=== PATIENT | male | born 1990 | race Caucasian/White ===

== ENCOUNTER 2018-10-19 06:36 | Day surgery (SDC) | payer OTHER ==
[2018-10-18 17:04] VITALS: BMI 27.4
[~2018-10-19] VITALS: Ht 193 cm; Wt 103.8 kg
[2018-10-19] VITALS (10 sets, daily range): BP systolic 115–141; BP diastolic 72–81; PULSE 52–67; RESP 14–39; Ht 193 cm; Wt 103.8 kg
[~2018-10-19 06:36] MED LIST: CEFAZOLIN 2 GM/50 ML (PMX) 50 ML IVPB ONE; SOD CHLORIDE 0.9% 1,000 ML IV SCH
[2018-10-19] MEDS ORDERED: LORA10TA3 PO (07:54)
[2018-10-19] MEDS ORDERED: MONT10TA24 PO (07:54)
[2018-10-19] MEDS ORDERED: FLOV44 INHALATION (07:55)
[2018-10-19] MEDS ORDERED: PSEU60TA2 PO (07:55)
--- NOTE | 2018-10-19 08:55 | PREAC ---
Date/Time of Note Date/Time of Note DATE: 10/19/18 TIME: 08:54 Anesthesia Eval and Record Evaluation Time Pre-Procedure Interview DATE: 10/19/18 TIME: 08:54 Age 28 Sex male NPO: 8 hrs Preoperative diagnosis RIGHT KNEE MASS Planned procedure EXCISION RIGHT KNEE MASS Past Medical History Past Medical History: Includes Pulm: Asthma Surgery & Anesthesia Issues No known issue Meds Anticoagulation: No Beta Irasema within 24 hr: No Reason Beta Irasema not given: Pt. not on B-Irasema Reported Medications Fluticasone Propionate* (Flovent* HFA 44) 10.6 Gm Inha, 1 PUFF INHALATION BID, #1 INHALER 10/19/18 Pseudoephedrine Hcl* (Pseudoephedrine Hcl*) 60 Mg Tablet, 60 MG PO Q6 PRN for CONGESTION, TAB 10/19/18 Montelukast Sodium* (Montelukast Sodium*) 10 Mg Tablet, 10 MG PO QHS, #30 TAB 10/19/18 Loratadine* (Loratadine*) 10 Mg Tablet, 10 MG PO DAILY, #30 TAB 10/19/18 Current Medications Sodium Chloride 1,000 ml @ 75 mls/hr [id number] IV Last administered on 10/19/18at 07:32; Admin Dose 75 MLS/HR; Start 10/19/18 at 06:00; Stop 10/19/18 at 18:00 Meds reviewed: Yes Allergies Coded Allergies: No Known Allergy (Unverified , 10/19/18) Allergies Reviewed: Yes Labs/Studies Labs Reviewed: Reviewed by anesthesiologist test: N/A Pre-procedure Exam Last vitals Vital Signs Date Temp Pulse Resp B/P (MAP) Pulse Ox O2 O2 Flow FiO2 Time Delivery Rate 10/19/18 97.9 67 18 115/81 97 Room Air 07:35 (92) Airway: Adequate mouth opening, Adequate thyromental dist Mallampati: Mallampati II Teeth: Normal Lung: Normal Heart: Normal ASA Physical Status ASA physical status: 2 Emergency: None Planned Anesthetic General/MAC: MAC Planned Pain Management Parenteral pain med Pre-operative Attestations Prior to commencing anesthesia and surgery, the patient was re-evaluated, there was verification of: *The patient's identity *The results of appropriate recent lab work and preoperative vital signs *The above evaluation not changing prior to induction *Anesthetic plan, risk benefits, alternative and complications discussed with patient/family; questions answered; patient/family understands, accepts and wishes to proceed. Anibal Preciado M.D. Oct 19, 2018 08:55
[2018-10-19] MEDS ORDERED: EPHEDrine 25 MG/5 ML SYG IV PRN (09:00)
[2018-10-19] MEDS ORDERED: LABETALOL HCL 20MG INJ IV PRN (09:00)
[2018-10-19] MEDS ORDERED: IPRATROPIUM (NEB) 0.5 MG/2.5 ML AMP HHN PRN (09:00)
[2018-10-19] MEDS ORDERED: OXYCODONE/ACETAMINOPHEN (5/325) TAB PO PRN ×2 (09:00)
[2018-10-19] MEDS ORDERED: MEPERIDINE 25 MG INJ IV PRN (09:00)
[2018-10-19] MEDS ORDERED: DIPHENHYDRAMINE 50 MG INJ IV PRN (09:00)
[2018-10-19] MEDS ORDERED: MIDAZOLAM 1 MG/ML 2 ML INJ IV PRN (09:00)
[2018-10-19] MEDS ORDERED: ALBUTEROL 0.083% (NEB) 2.5 MG/3 ML AMP HHN PRN (09:00)
[2018-10-19] MEDS ORDERED: FENTAnyl 50 MCG/ML VIAL IV PRN ×3 (09:00)
[2018-10-19] MEDS ORDERED: hydrALAzine 20 MG INJ IV PRN (09:00)
[2018-10-19] MEDS ORDERED: ONDANSETRON 4 MG INJ IV PRN (09:00)
[2018-10-19] MEDS ORDERED: TRIMETHOBENZAMIDE 100 MG/ML VIAL IM PRN (09:00)
[2018-10-19] MEDS ORDERED: HYDROmorphONE 1 MG/5 ML IV SYRINGE IV PRN ×3 (09:00)
[2018-10-19] MEDS ORDERED: LIDOCAINE 2% (MDV) 20 ML INJ ONE (09:01)
[2018-10-19] MEDS ORDERED: BUPIVACAINE 0.5% (SDV) 30 ML INJ ONE (09:01)
[2018-10-19] MEDS ORDERED: MIDAZOLAM 1 MG/ML 2 ML INJ ONE (09:14)
[2018-10-19] MEDS ORDERED: ONDANSETRON 4 MG INJ ONE (09:14)
--- NOTE | 2018-10-19 09:41 | OPR ---
Date/Time of Note Date/Time of Note DATE: 10/19/18 TIME: 09:39 Operative Report Procedure Date: Oct 19, 2018 Preoperative Diagnosis right lower leg mass Postoperative Diagnosis same Operation/Procedure Performed 1. excision of right lower leg mass 4 cm mass 4 cm incision 2. localized adjacent tissue transfer with the use of skin flaps 8 sq cm defect 3. therapeutic injection of subcutaneous local anesthesia Surgeon see signature line Lunchroom Monitor none Anesthesia Type: MAC Estimated Blood Loss: 0 - 10 ml's Transfusion none Specimen right lower leg mass Grafts/Implants none Complications none Pt Condition Post Procedure: stable Indications This is a 28-year-old male with a right lower leg mass. He has pain and request surgical excision of the right lower leg mass. Risks alternatives benefits and personnel were discussed the patient. Patient expressed understanding and consents to the operation. Procedure Description Patient is taken to the OR and prepped and draped in usual sterile fashion. Surgical timeout is performed. IV antibiotics given. Subcutaneous therapeutic local anesthesia was injected all around the area of the mass. 15 blade was used to make elliptical incision around the mass. Dissection with cautery skin onto the mass and the mass was circumferentially excised in a full-thickness manner. Good hemostasis status. Due to tissue defect localized adjacent to his transfer with these of skin flaps was performed. Multilayer closed with interrupted 2-0 Vicryl and skin annette. Dry dressings were applied. Judy ESCAMILLA Oct 19, 2018 09:41
[2018-10-19] MEDS ORDERED: HYDROCODONE/APAP (5/325) TAB PO ONE (10:00)
== END 2018-10-19 10:45 | disposition home or self-care (01) ==
LOC: SDS 06:36
PROVIDERS: ATTEND Surgery
DX: L90.5 Scar conditions and fibrosis of skin (principal); J45.909 Unspecified asthma, uncomplicated
CPT/HCPCS: 14020; 88307; J0690; J2250; J2405; J3010